=== PATIENT | male | born 2000 | race Caucasian/White ===

== ENCOUNTER 2025-04-29 17:20 | Emergency (ER) | payer OTHER, SELFPAY ==
[2025-04-29 17:25] VITALS: BP 155/103
[2025-04-29 17:51] LABS: Hematocrit 38.9 % (39.0-52.0); Hemoglobin 13.4 g/dL (13.0-18.0); Mean Corp Hgb Conc. 34.4 g/dL (33.0-37.0); Mean Corpuscular Volume 80.2 fL (80.0-94.0); Nucleated Red Blood Cells % 0 % (-); Platelet Count 259 10^3/uL (130-400); Red Cell Dist. Width 13.0 % (11.5-14.5)
[2025-04-29 18:04] LABS: ALT (SGPT) 40 U/L (0-50); AST (SGOT) 26 U/L (17-59); Albumin 4.9 g/dl (3.5-5.0); Alkaline Phosphatase 79 U/L (38-126); Blood Urea Nitrogen 15 mg/dl (9-20); Calcium 10.0 mg/dl (8.4-10.2); Carbon Dioxide 26 mmol/L (22-30); Chloride 105 mmol/L (98-107); Glucose 84 mg/dl (70-99); Potassium 4.2 mmol/L (3.5-5.1); Sodium 140 mmol/L (135-145); Total Protein 7.9 g/dl (6.3-8.2); eGFR > 60.00
[2025-04-29 18:15] LABS: Troponin I < 0.012 ng/ml
[2025-04-29 19:14] VITALS: BP 153/92
[2025-04-29 20:00] VITALS: BP 129/80
[2025-04-29 21:00] VITALS: BP 128/85
--- NOTE | 2025-04-29 21:20 | ED.GENMED ---
History of Present Illness
General
Chief Complaint: Cardiac Symptoms
Source: patient
Exam Limitations: none
Time Seen by Provider: 04/29/25 20:19
Nursing documentation reviewed up to this point in time: agreed with
History of Present Illness
History of Present Illness:
25-year-old male with history of anxiety disorder panic attacks( has prn Ativan and Vistaril) on fluoxetine presents to the ER for evaluation. Patient reports for the past 2 weeks he has had intermittent aches and numbness and tingling in his
bilateral arms. He denies any neck pain or trauma. Last night however he reports he drank a lot of caffeine had espresso and coffee and felt very nauseous lightheaded jittery and dizzy. He reports he' may have had a little chest pain.'
He thought it was anxiety and took Ativan however did not have a lot of relief of symptoms. Today he continued to feel nauseous and felt a little dizzy like he was in a pass out. He reports he was drinking a lot of water and in fact is feeling
better now. He does have a history of passing out' from either high or low blood pressure.' He does report that his blood pressure has been elevated the past however he was not prescribed medicine by his family doctor they were watching it.
He quit smoking and quit vaping several months ago. He has no family history of cardiac disease
Phy Exam
General Physical Exam
General Presentation: no apparent distress
General age: appears stated age
General Skin: warm and dry
General Habitus: normal
General Mental: alert
General Hydration: appears well hydrated
Cardiovascular Exam
Cardiovascular Exam: regular rate/rhythm, no murmur and normal peripheral pulses
Pulmonary Exam
Pulmonary Exam: lungs clear and no respiratory distress
Gastrointestinal Exam
Gastrointestinal Exam: non tender and soft
Neurological Exam
Neurological Exam: alert and oriented x3
Musculoskeletal Exam
Musculoskeletal Exam: full ROM
Skin Exam
Skin Exam: normal color and warm/dry
Psychiatric Exam
Psychiatric Exam: normal mood/affect
Course
Orders/Labs/Results
Orders:
Orders
04/29/25 17:21
Electrocardiogram (*1) Urgent
Reason for Study: Chest Pain
EKG- Treatment ONCE
04/29/25 17:42
Complete Blood Count/With Diff Urgent
Comprehensive Metabolic Panel Urgent
Troponin I Urgent
Abnormal Lab Results
04/29/25
17:42
Hct 38.9 L %
(39.0-52.0)
MPV 10.9 H fL
(7.4-10.4)
04/29/25 17:42
04/29/25 17:42
Vital Signs
Initial and Last Documented VS:
Initial Vital Signs
Temp Pulse Resp BP Pulse Ox
98.5 F 87 18 155/103 99
04/29/25 17:25 04/29/25 17:25 04/29/25 17:25 04/29/25 17:25 04/29/25 17:25
Last Documented Vital Signs
Temp Pulse Resp BP Pulse Ox
98.5 F 78 20 153/92 96
04/29/25 17:25 04/29/25 19:30 04/29/25 19:30 04/29/25 19:14 04/29/25 21:21
MDM/Problems Addressed
Differential Diagnosis Includes:
Not limited to anxiety electrolyte abnormality less likely ACS paresthesias cervical radiculopathy
MDM/Problems Addressed:
Patient is a 25-year male who has a history of anxiety who presents for evaluation. Patient has had intermittent nausea dizziness questionable chest discomfort after having espresso and coffee yesterday and continued to not feel well today. [place]
dizzy and near syncopal. He does have a history of passing out previously. He is asymptomatic now and well-appearing he does have a history anxiety and questions if this was his anxiety as well. He does report he is a' hypochondriac' and does
worry often. He quit smoking several months ago no cardiac history. His cardiac troponin is negative. He is well-appearing without any symptoms. Will discharge patient home however I did review with patient the importance of following up with
his family doctor for reevaluation of his arm pain paresthesias for the past 2 weeks and also for further evaluation of blood pressure as it is elevated here.
Chronic conditions affecting care:
Anxiety
*Pulse Oximetry
SaO2: 96
Oxygen Mode of Delivery: Room air
Patient hypoxic: no
*EKG
Interpreted by ED Provider?: Yes
Interpretation: normal
Comparison EKG: no comparison EKG present
Heart Rate: 64
Rate: normal
Rhythm: sinus
Ischemia: no ischemia
*Critical Care Note
Total Time (30-74mins, 75-104mins- exclusive of procedures): Not Applicable
ED Attending Note
-
Portions of this chart may have been created with voice recognition software.� Occasional wrong word or��sound alike� substitutions may have occurred due to the inherent limitations of voice recognition software.
Discharge Plan
Departure
Patient Disposition: Home (Routine Discharge)
Date of Disposition: 04/29/25
Time of Disposition: 21:50
Patient with high blood pressure during this ER visit?: Yes
Condition: Fair
Covid-19: Not Applicable
Discharge Problem:
Dizziness, paresthesias
Instructions: Chest Pain (DC), Chest pain (DC), Dizziness in adults - ED (DC)
Referrals:
Ambika Redding DO [Family Provider, Family Practice]
Activity Restrictions/Additional Instructions:
Follow-up with your family doctor in the next several days for reevaluation of your symptoms including your elevated blood pressure dizziness and arm pain/numbness tingling.
avoid caffeine.
Return if any worsening of symptoms.
Interventions
Interventions:
*Risk Screen - Suicide Last Done: 04/29/25 17:26
*General Assessment Last Done: 04/29/25 17:26
*Neglect/Abuse Screening Last Done: 04/29/25 17:26
*ED- Fall Risk Assessment Last Done: 04/29/25 19:41
*ED COVID-19 Vaccine History Last Done: 04/29/25 19:41
ED- Pulmonary Assessment Last Done: 04/29/25 19:41
ED- Cardiac Assessment Last Done: 04/29/25 19:41
Discharge Date and Time
Print Language: [id number]
== END 2025-04-29 22:01 | disposition home or self-care (01) ==
LOC: EMR 17:20
PROVIDERS: EMERGENCY PHYSICIAN Emergency Medicine; FAMILY PHYSICIAN Family Medicine
DX: R42 Dizziness and giddiness (principal); R20.2 Paresthesia of skin; R03.0 Elevated blood-pressure reading, without diagnosis of hypertension; F41.9 Anxiety disorder, unspecified; R41.0 Disorientation, unspecified; Z87.891 Personal history of nicotine dependence
CPT/HCPCS: 99284; 80053; 84484; 85025; 93005